=== PATIENT | male | born 1970 | race Caucasian/White ===

== ENCOUNTER 2017-06-13 09:49 | Emergency (ER) | payer OTHER ==
[2017-06-13 10:02] VITALS: BP 150/105; PULSE 87; RESP 18; TEMP 98.2; O2SAT 95
--- NOTE | 2017-06-13 10:19 | EDPHY ---
H & P Time Seen by Provider: 06/13/17 10:11 HPI/ROS: CHIEF COMPLAINT: Left shoulder/left arm pain HISTORY OF PRESENT ILLNESS: The patient is a 47-year-old male with a history of hemorrhagic CVA and hypertension who presents emergency department with left shoulder pain. The patient states he was working with his iPhone and had a hold up above his head in his left arm for about 20 min. When he completed this task his arm was stiff. Then developed pain over his left scapula. This has been increasing throughout the night. He feels as though radiates to his left forearm. He has had no numbness or tingling. No weakness. No pain with movement of his neck. He states his pain feels slightly improved with some movement of his arm for when he is at rest his pain returns. He has had no specific shortness of breath. No nausea or vomiting. No diaphoresis. No leg pain or swelling. He has been taking his blood pressure medication. Patient states at 1 point the pain radiated to his left anterior chest but is not present currently. REVIEW OF SYSTEMS: My complete review of systems is negative except as mentioned in the HPI. Past Medical/Surgical History: Includes hypertension, hemorrhagic CVA Past surgical history: Negative Social history: Patient does not smoke. Smoking Status: Former smoker Physical Exam: 36.8, 150/105, 87, 18, 95% on room air GENERAL: Well-appearing, in no acute distress, alert. HEENT: Eyes normal to inspection, normal pharynx, no signs of dehydration. NECK: No thyromegaly, no lymphadenopathy, supple. No C-spine tenderness to palpation. RESPIRATORY: Clear to auscultation bilaterally, no rales, rhonchi or wheezing. CVS: Regular rate and rhythm, no rubs, murmurs, or gallops. ABDOMEN: Soft, nontender, nondistended, no organomegaly. BACK: Normal to inspection, no CVA tenderness. Patient has mild tenderness palpation over his left scapula. This replicates his pain. He states when I push on his left scapula he does have some pain on his left forearm. He has no spinal tenderness palpation. SKIN: Normal color, no rash, warm, dry. No pallor. EXTREMITIES: No pedal edema, no calf tenderness, no Homans sign or cords, no joint swelling. NEURO/PSYCH: Alert and oriented x3, normal mood and affect, normal motor sensory exam. No obvious cranial nerve deficit. Normal. Constitutional: Initial Vital Signs Temperature (C) 36.8 C 06/13/17 09:57 Heart Rate 87 06/13/17 09:57 Respiratory Rate 18 06/13/17 09:57 Blood Pressure 150/105 H 06/13/17 09:57 O2 Sat (%) 95 06/13/17 09:57 O2 Delivery Mode Room Air Allergies/Adverse Reactions: No Known Allergies Allergy (Verified 06/13/17 10:02) Home Medications: Medication Instructions Recorded Cyclobenzaprine [Flexeril] 10 mg PO TID #15 tab 06/13/17 Hydrochlorothiazide 06/13/17 Hydrocodone/APAP 5/325 [[place] 1 - 2 tab PO Q4 #13 tab 06/13/17 5/325 (RX)] Lisinopril 06/13/17 Medical Decision Making ED Course/Re-evaluation: In the emergency department I discussed possible etiologies with the patient. Patient's pain started after holding his I phone. Does seem muscular in nature. However with the patient's history of hypertension and EKG was ordered. EKG shows normal sinus rhythm, normal rate, RAD, normal intervals. There are no ST or T-wave abnormalities. I discussed the results with the patient. Again, I answered all his questions. He was given warnings prior to leaving. He will follow up with his primary care physician in 2-3 days if his symptoms persist. He was given a prescription of Flexeril and Vicodin. Differential Diagnosis: My differential includes but is not limited to musculoskeletal strain, muscle spasm, disc herniation, ACS, acute WI, pneumonia, pneumothorax, , PE, CVA Departure - Departure Disposition: Home, Routine, Self-Care Clinical Impression: Left arm pain Shoulder pain, left Qualifiers: Chronicity: acute Qualified Code(s): M25.512 - Pain in left shoulder Condition: Good Instructions: Musculoskeletal Pain (ED) Additional Instructions: Return with increasing pain, weakness, numbness, headache, shortness of breath, chest pain or any other concerns. Referrals: Ebony Medina MD [[facility] [place] Primary Care Provider] - 3-4 days, if not improved Prescriptions: Cyclobenzaprine [Flexeril] 10 mg PO TID #15 tab Hydrocodone/APAP 5/325 [[place] 5/325 (RX)] 1 - 2 tab PO Q4 #13 tab
--- NOTE | 2017-06-13 10:23 | CPEKG ---
Heart Rate: 83 RR Interval: 723 P-R Interval: 144 QRSD Interval: 92 QT Interval: 380 QTC Interval: 447 P [place]: 14 QRS [place]: 102 T Wave [place]: -7 EKG Severity - BORDERLINE ECG - EKG Impression: SINUS RHYTHM EKG Impression: RIGHT AXIS DEVIATION EKG Impression: BORDERLINE T ABNORMALITIES, INFERIOR LEADS Electronically Signed By: Dilip Cedeño 15-Jun-2017 08:48:21
== END 2017-06-13 10:42 | disposition home or self-care (01) ==
LOC: CED 09:49
DX: M79.622 Pain in left upper arm (principal); M25.512 Pain in left shoulder; I10 Essential (primary) hypertension; Z86.73 Personal history of transient ischemic attack (TIA), and cerebral infarction without residual deficits; Z87.891 Personal history of nicotine dependence